=== PATIENT | male | born 1980 | race Caucasian/White ===

== ENCOUNTER 2024-10-11 20:32 | Emergency (ER) | payer OTHER, SELFPAY ==
[2024-10-11] VITALS (10 sets, daily range): BP systolic 163–197; BP diastolic 94–109; PULSE 70–84; RESP 16–18; TEMP 37.1; O2SAT 90–96; BMI 46.2
[2024-10-11 21:42] LABS: Basophils Absolute Auto 0.05 K/uL (0.00-0.30); Basophils Percent Auto 0.5 % (0.0-3.0); Eosinophils Absolute Auto 0.25 K/uL (0.00-0.50); Eosinophils Percent Auto 2.4 % (0.0-7.0); Hemoglobin* 13.9 gm/dL (13.5-17.5); Immature Granulocytes Abs Auto 0.02 K/uL (0.00-0.30); Immature Granulocytes Pct Auto 0.2 %; Lymphocytes Absolute Auto 2.66 K/uL (0.90-2.90); Lymphocytes Percent Auto 25.9 % (20-44); Mean Corpuscular HGB Conc 32 gm/dL (32-36); Mean Corpuscular Hemoglobin 28 pg (26-34); Mean Corpuscular Volume 87 fL (80-100); Monocytes Percent Auto 5.4 % (0.0-11.0); Neutrophils Absolute Auto 6.74 K/uL (1.7-7.0); Neutrophils Percent Auto 65.6 % (42.0-72.0); Platelet Count* 257 K/uL (140-440); RDW Coefficient of Variation % 13.9 % (11.5-15.5); Red Blood Count 4.96 m/uL (4.30-5.90); White Blood Count* 10.28 K/uL (4.50-11.00)
[2024-10-11 21:53] LABS: Slide Review Reflex No
[2024-10-11 21:57] LABS: Chloride* 107 mmol/L (96-114)
[2024-10-11 21:58] LABS: Potassium* 3.2 mmol/L (3.6-5.1); Sodium* 140 mmol/L (135-149)
[2024-10-11 22:00] LABS: Creatinine* 0.7 mg/dL (0.5-1.5); Est. Creatinine Clearance* 150.61; Estimated Glomerular Filt Rate 116 ml/min
[2024-10-11 22:01] LABS: Anion Gap 11 mEq/L (7-15); Blood Urea Nitrogen* 17 mg/dL (5-24); Calcium* 9.8 mg/dL (8.4-10.6); Carbon Dioxide* 22 mmol/L (20-32); Glucose* 134 mg/dL (60-115)
--- OUTSIDE RECORDS SUMMARY | 2024-10-11 22:04 | XMS_ITS | Referral Summary ---
Author Organization [facility] Address [address] [place] [id number] Care Team Providers Care Emergency Dispatch Operator Name Role Phone No Ref-Primary, Physician Primary Care Provider Allergies Active Allergy Reactions Criticality Noted Date Comments Naproxen Sodium Rash Low 01/26/2007 Bupropion Rash Low 01/26/2007 Medications ibuprofen (ADVIL,MOTRIN) 200 MG tablet Take 800 mg by mouth every 4 hours as needed. 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 01/31/2007 05/15/2007 Muscle weakness (generalized) 01/31/2007 05/15/2007 Immunizations Name Administration Dates Next Due TDAP Vaccine (Boostrix) 06/02/2017 Social History Tobacco Use Types Packs/Day Years Used Date Smoking Tobacco: Every Day Cigarettes Smokeless Tobacco: Former Tobacco Cessation:Ready to Q uit: No; Counseling Given: Yes Alcohol Use Standard Drinks/Week Comments Yes 0 (1 standard drink = 0.6 oz pur e alcohol) socially PHQ-2 Answer Date Recorded PHQ-2 Score 0 12/05/2018 Sex and Gender Information Value Date Recorded Sex Assigned at Not on file 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 Gender Identity Not on file Sexual Orientation Not on file Last Filed Vital Signs Vital Sign Reading Time Taken Comments Blood Pressure 124/84 04/26/2020 10:50 AM CDT Pulse 65 04/26/2020 10:50 AM CDT Temperature 36.6 ??C (97.9 ??F) 08/03/2019 1 0:10 AM CDT Respiratory Rate 20 04/26/2020 10:5 0 AM CDT Oxygen Saturation 98% 04/26/2020 10: 50 AM CDT Inhaled Oxygen Concentration - - Weight 140.1 kg (308 lb 14.4 oz) 2019 10:50 AM CDT Height 185.4 cm (6' 1) 02/20/2018 2:18 PM CDT Body Mass Index 40.75 02/20/2018 2:18 PM CDT Plan of Treatment Not on file Insurance [facility] Care Teams Emergency Dispatch Operator Relationship Specialty Start Date End Date No Ref-Primary, Physician PCP - General 02/20/18
--- OUTSIDE RECORDS SUMMARY | 2024-10-11 22:04 | XMS_ITS | Clinical Summary ---
Author Organization [facility] Address [address] [place] [id number] Care Team Providers Care Ornamental Rail Installer Name Role Phone No Ref-Primary, Physician Primary [...] Dates Next Due TDAP Vaccine (Boostrix) 06/02/2017 Family History Medical History Relation Comments Depression Father Other Cancer Father non-hodgkins lym phoma Depression Mother Behavior Disorder Son ADHD Relation Status Comments Brother Alive Daughter Alive Father Alive Maternal Grandfather Maternal Grandmother Mother Alive Paternal Grandfather Paternal Grandmother Alive Son Alive Social History Tobacco Use Types Packs/Day Years [...] on file 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
--- OUTSIDE RECORDS SUMMARY | 2024-10-11 22:04 | XMS_ITS | Clinical Summary ---
Author Organization [facility] Address [place], [place] [address] Care Team Providers Care Recreational Therapy Aide Name Role Phone Mercy Woodward MD Primary Care Provider + Allergies Active Allergy Reactions Criticality Noted Date Comments Bupropion Rash 11/09/2010 zyban Naproxen 11/09/2010 Medications Medication Sig Dispensed Refills Start Date End Date Status ibuprofen (ADVIL; MOTRIN) 200 mg tablet Take 1 tablet by mouth 4 times daily if needed. 0 11/09/2010 Active prochlorperazine (COMPAZINE) 10 mg tablet Take 1 tablet by mouth every 6 hours if needed for Nausea/Vomiting. 30 tablet 0 01/20/2012 Active omeprazole (PRILOSEC) 10 mg capsule Take 1 capsule by mouth once daily before a meal. 30 capsule 0 01/20/2012 Active codeine-guaFENesin (CHERATUSSIN AC) 10-100 mg/5 mL liquidIndications:Co ugh Take 5-10 mL by mouth every 4 hours if needed for Cough. Max dose 60 mL per 24 hrs. 150 mL 0 12/27/2013 Active albuterol HFA (PRO-AIR,VENTOLIN,NY OVENTIL) 90 mcg/actuation inhalerIndications:W heezing Inhale 1-2 Puffs by mouth every 4 hours if needed. 1 Inhaler 5 10/29/2014 Active Active Problems Problem Noted Date Diagnosed Date Sleep apnea 10/25/2013 Overview (10/25/2013): Severe. Started on CPAP Morbid obesity 10/02/2011 Smoking 09/30/2011 Immunizations Name Administration Dates Next Due Td (Age >=7 Years) 10/06/2004 Tdap 06/02/2017 Family History Medical History Relation Name Comments Good Health Brother bariatric surge ry Good Health Daughter Blood Disease Father non Hodgkin's small C cell Hypertension Mother Good Health Son Relation Name Status Comments Brother Alive Daughter Alive Father Alive Mother Alive Son Alive Social History Tobacco Use Types Packs/Day Years Used Date Smoking Tobacco: Every Day Cigarettes 1 15 Smokeless Tobacco: Never Tobacco Cessation:Ready to Q uit: No; Counseling Given: Yes Comments:wants to try lasar treatment Alcohol Use Standard Drinks/Week Comments Yes 0 (1 standard drink = 0.6 oz pur e alcohol) rarely Social Connections Answer Date Recorded Frequency of Communication with Friends and Fami ly Not on file 11/27/2021 Financial Resource Strain Answer Date R ecorded Difficulty of Paying Living Expenses Not on file 11/27/2021 Difficulty of Paying Living Expenses Not on file 11/27/2021 Sex and Gender Information Value Date Recorded Sex Assigned at Not on file Gender Identity Not on file Sexual Orientation Not on file Obstetrics History Last Filed Vital Signs Vital Sign Reading Time Taken Comments Blood Pressure 123/78 06/02/2017 9:50 AM CDT Pulse 64 06/02/2017 9:50 AM CDT Temperature 36.4 ??C (97.6 ??F) 06/02/2017 9:50 AM CD T Respiratory Rate 20 12/14/2013 1:36 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 Oxygen Saturation 99% 12/14/2013 1:36 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 Inhaled Oxygen Concentration - - Weight 156.5 kg (345 lb 1.6 oz) 06/02/2017 9:50 AM CDT Height 184.2 cm (6' 0.5) 06/02/2017 9:50 AM CDT Body Mass Index 46.16 06/02/2017 9:50 AM CDT Plan of Treatment Health Maintenance Due Date Last Done Comments HIV for age 15-65 1994 Hepatitis C screening for ag e 18-79 1997 BMI (ht and wt on same day) for age 18+ 06/02/2018 06/02/2017 Depression screening for age 12+ 06/02/2018 06/02/2017 Colonoscopy through age 75 01/31/2024 Lipids for age 45-75 01/31/2024 06/02/2017, 10/06/2004, 10/06/2004 COVID-19 vaccine series (2023-25 season) 2024 Influenza for age 9-49 07/28/2024 Tetanus booster 06/02/2027 06/02/2017, 10/06/2004 Tdap Completed 06/02/2017 Pneumococcal series for age 6-64 Aged Out No longer eligible b ased on patient's age to complete this topic Procedures Procedure Name Priority Date/Time Associated Diagnosis Comments LIPID PANEL W REFLEX MEASURED LDL Routine 06/02/2017 10:25 AM CDT Lipid screening from Last 3 Months or Most Recently Relevant to Health Maintenance Results * (ABNORMAL) LIPID PANEL W REFLEX MEASURED LDL (06/02/2017 10:25 AM CDT) CHOLESTEROL,TOTAL 209(H) 100 - 199 mg/dL 06/02/2017 2:56 PM CDT [facility] TRIGLYCERIDES 181(H) <150 mg/dL 06/02/2017 2:56 PM CDT [facility] HDL CHOLESTEROL 26(L) >40 mg/dL 7 2:56 PM CDT [facility] NON-HDL CHOLESTEROL 183(H) <145 mg/dl 06/02/2017 2:56 PM CDT [facility] CHOL/HDL RATIO 8.04(H) <4.50 06/02/2017 2:56 PM CDT [facility] LDL CHOLESTEROL 147(H) <=130 mg/dL 06/02/2017 2:56 PM CDT [facility] PATIENT STATUS FASTING 06/02/2017 2:56 PM CDT [facility] Blood BLOOD SPECIMEN / Unknown Venipuncture / Unknown 06/02/2017 10:25 AM CDT 06/02/2017 10:25 AM CDT Mercy Woodward MD [facility] [address] [place] [address], [place] from Last 3 Months or Most Recently Relevant to Health Maintenance Care Teams Recreational Therapy Aide Relationship Specialty Start Date End Date Mercy Woodward MD PCP - General 09/27/10
--- NOTE | 2024-10-11 22:36 | ED.GENADULT ---
HPI - General Adult General Date Seen: 10/11/24 Chief complaint: Hypertension Stated complaint: high blood pressure Time Seen by Provider: 10/11/24 20:44 Source: patient Mode of arrival: ambulatory Limitations: no limitations History of Present Illness HPI narrative: This very nice gentleman presents here with his with an elevated blood pressure. He is asymptomatic with this he did not have chest pain visual disturbances shortness of breath headaches or any other complaints, he took his blood pressure at home as he went to the manufacturing worker this week for ruptured blood vessel in his eye. The of times told this may be from high blood pressure, and his put a blood pressure cuff on his left wrist and noted that his blood pressure was 200 on 100. They came into the emergency department for this. He denies a history of elevated blood pressure but I do noted some of his visits he is consistently 160 systolic. No previous heart history, denies use of cold medications listed medications uses alcohol infrequently but does smoke, there is a history of family history of heart disease in the family, with multiple family members having bypasses before the age of 60. He does not have a history of chest pain shortness of breath, able to walk without problems. Related Data Home Medications ?Medication ?Instructions ?Recorded ?Confirmed ibuprofen 200 mg tablet (Advil) 1,600 mg PO DAILY 10/11/24 10/11/24 Previous Rx's ?Medication ?Instructions ?Recorded albuterol sulfate 90 mcg/actuation 2 puff inhalation Q4-6H PRN 08/21/23 aerosol inhaler (Ventolin HFA) shortness of breath or wheezing #8.5 grams Allergies Allergy/AdvReac Type Severity Reaction Status Date / Time naproxen Allergy Severe Rash Verified 10/11/24 20:41 bupropion (From Wellbutrin) Allergy Intermediate hives, Verified 10/11/24 20:41 shortness of breath Review of Systems Status of ROS: Reports: 10 or more systems reviewed and unremarkable except as noted in History and below [facility] Medical History Right otitis media ?H66.91 - Otitis media, unspecified, right ear (ICD-10) Community acquired pneumonia ?J18.9 - Pneumonia, unspecified organism (ICD-10) Wheezing ?R06.2 - Wheezing (ICD-10) Cough ?R05.9 - Cough, unspecified (ICD-10) Otitis externa ?H60.90 - Unspecified otitis externa, unspecified ear (ICD-10) Social History Smoking Status: Heavy tobacco smoker What tobacco products do you use: cigarettes Smoking packs per day: 1 Smoking cigarettes per day: 20.0 Years smoked: 30 Smoking pack-years: 30.00 Do you use any of these nicotine containing products: None Second hand tobacco smoke exposure: No How often do you have a drink containing alcohol: 2-4 times a month AUDIT-C Alcohol total score: 2 Non-prescribed substance use: denies use Exam Narrative: Exam Narrative: On examination large gentleman with an elevated BMI he is seen in room 4 he is speaking to me entirely normally, with no complaints pupils equal round reactive to light his fundi are normal. His neck is supple I am unable to sees JVP carotid upstrokes are normal bilaterally, with no bruits chest is good air entry bilateral with no wheezing crackles noted his heart sounds are normal there is no clicks murmurs or gallops his abdomen is soft and obese skin reveals no petechiae rashes moves all extremities independently well with no edema of his lower extremities. Const: Vital Signs, click to edit/add: Vital Signs - 24 hr 10/11/24 20:36 10/11/24 20:45 10/11/24 21:02 Temperature 98.7 F Pulse Rate 78 84 Pulse Rate [Pulse Oximeter] 80 Respiratory Rate 16 18 Blood Pressure 181/100 H Blood Pressure [Ri ght Upper Arm] 197/109 H Pulse Oximetry 95 96 96 Oxygen Delivery Me thod Room Air Room Air 10/11/24 21:15 10/11/24 21:23 10/11/24 21:41 Temperature Pulse Rate 78 75 74 Pulse Rate [Pulse Oximeter] Respiratory Rate 18 Blood Pressure 182/99 H 173/94 H Blood Pressure [Ri ght Upper Arm] Pulse Oximetry 94 94 90 Oxygen Delivery Me thod Room Air 10/11/24 22:00 10/11/24 22:01 10/11/24 22:15 Temperature Pulse Rate 70 71 70 Pulse Rate [Pulse Oximeter] Respiratory Rate Blood Pressure 172/98 H Blood Pressure [Ri ght Upper Arm] Pulse Oximetry 94 91 94 Oxygen Delivery Me thod 10/11/24 22:21 Temperature Pulse Rate 76 Pulse Rate [Pulse Oximeter] Respiratory Rate 18 Blood Pressure 163/103 H Blood Pressure [Ri ght Upper Arm] Pulse Oximetry 93 Oxygen Delivery Me thod Room Air Course Vital Signs Vital signs: Initial Vital Signs Temperature 98.7 F 10/11/24 20:36 Temperature Source Temporal Artery Scan 10/11/24 20:36 Pulse Rate 80 10/11/24 20:36 Respiratory Rate 16 10/11/24 20:36 Blood Pressure 197/109 H 10/11/24 20:36 Blood Pressure Mean 138 H 10/11/24 20:36 Blood Pressure Position Sitting 10/11/24 20:36 Pulse Oximetry 95 10/11/24 20:36 Oxygen Delivery Method Room Air 10/11/24 20:36 Vital Signs Temperature 98.7 F 10/11/24 20:36 Pulse Rate 80 10/11/24 20:36 Respiratory Rate 16 10/11/24 20:36 Blood Pressure 197/109 H 10/11/24 20:36 Pulse Oximetry 95 10/11/24 20:36 Oxygen Delivery Method Room Air 10/11/24 20:36 Temperature 98.7 F 10/11/24 20:36 Pulse Rate 76 10/11/24 22:21 Respiratory Rate 18 10/11/24 22:21 Blood Pressure 163/103 H 10/11/24 22:21 Pulse Oximetry 93 10/11/24 22:21 Oxygen Delivery Method Room Air 10/11/24 22:21 Medical Decision Making MDM Narrative Medical decision making narrative: This gentleman has asymptomatic hypertension and is at risk for developing either coronary disease or strokes for a complications 2nd is that. He would minimize this by losing weight, stopping smoking, and treating his high blood pressure. Given the fact he is asymptomatic today and falling the ACEP guidelines, I did offer medication for this but he declined I think follow-up would be fine waiting to the week, but he will need follow-up for this. Likely medication or multiple medications. There was also evidence of hypokalemia on his blood test, talked about potassium rich foods which she should do in this should be recheck Medical Records Medical records reviewed: Yes I reviewed the patient's medical records Lab Data Lab results reviewed: Yes I reviewed the patient's lab results Labs: Lab Results 11/15/24 Range/Units 21:30 WBC 10.28 (4.50-11.00) K/uL RBC 4.96 (4.30-5.90) m/uL Hgb 13.9 (13.5-17.5) gm/dL Hct 43.0 (37.0-53.0) % MCV 87 (80-100) fL MCH 28 (26-34) pg MCHC 32 (32-36) gm/dL RDW Coeff of Michele 13.9 (11.5-15.5) % Plt Count 257 (140-440) K/uL Neut % (Auto) 65.6 (42.0-72.0) % Lymph % (Auto) 25.9 (20-44) % Giles % (Auto) 5.4 (0.0-11.0) % Eos % (Auto) 2.4 (0.0-7.0) % Baso % (Auto) 0.5 (0.0-3.0) % Neut # (Auto) 6.74 (1.7-7.0) K/uL Lymph # (Auto) 2.66 (0.90-2.90) K/uL Giles # (Auto) 0.60 (0.00-0.90) K/UL Eos # (Auto) 0.25 (0.00-0.50) K/uL Baso # (Auto) 0.05 (0.00-0.30) K/uL Abs Immat Gran (auto) 0.02 (0.00-0.30) K/uL Imm/Tot Granulo (auto) 0.2 % Sodium 140 (135-149) mmol/L Potassium 3.2 L (3.6-5.1) mmol/L Chloride 107 (96-114) mmol/L Carbon Dioxide 22 (20-32) mmol/L Anion Gap 11 (7-15) mEq/L BUN 17 (5-24) mg/dL Creatinine 0.7 (0.5-1.5) mg/dL Estimated Creat Clear 150.61 Estimated GFR 116 ml/min Glucose 134 H (60-115) mg/dL Calcium 9.8 (8.4-10.6) mg/dL ECG Data Attestation: I personally reviewed and interpreted this ECG as follows: Prior ECG tracings: not available for review Interpretation: EKG shows normal sinus rhythm, with no acute ST wave changes normal QRS QT and QTC. Discharge Plan Discharge Clinical Impression: Asymptomatic hypertension, Tobacco use disorder Patient Disposition: Home w/ Parent or Adult Condition: Stable Instructions: How to Stop Smoking (ED), Hypokalemia (ED), Hypertension (ED) Additional Instructions: Home, rest, follow-up with primary care next week, would be appropriate, return if chest pain headaches, or other signs of significant hypertension. Recommend high potassium diet. And likely recheck of your laboratory work when you see primary care Smoking cessation, along with exercise and weight loss is also recommended. Activity Level: Light activity Prescriptions: No Action albuterol sulfate [Ventolin HFA] 90 mcg/actuation HFA aerosol inhaler 2 puff inhalation Q4-6H PRN (Reason: shortness of breath or wheezing) Qty: 8.5 1RF ibuprofen [Advil] 200 mg tablet 1,600 mg PO DAILY Follow Up/Referrals: Chang Leonard MD [Staff Physician] - Provider,Not a Local [Primary Care Provider] - Fly Day PA-C [Physician Roll Icer Machine] - Stand Alone Forms: [employer] Info Instructions
== END 2024-10-11 22:39 | disposition home or self-care (01) ==
PROVIDERS: Emergency Provider Family Medicine
DX: I10 Essential (primary) hypertension (principal); F17.200 Nicotine dependence, unspecified, uncomplicated
CPT/HCPCS: 36415; 80048; 85025; 93005; 99283; 99284

== ENCOUNTER 2024-10-14 10:54 | Outpatient (CLI) | payer OTHER, SELFPAY | END 2024-10-14 10:55 | disposition home or self-care (01) | PROVIDERS: PCP Physician Assistant Medical; Visit Provider Physician Assistant Medical | DX: I10 Essential (primary) hypertension (principal); E66.01 Morbid (severe) obesity due to excess calories; E87.6 Hypokalemia; R73.9 Hyperglycemia, unspecified | CPT/HCPCS: 80053; 80061; 84443 ==

== ENCOUNTER 2024-12-24 08:20 | Outpatient (CLI) | payer OTHER, SELFPAY | END 2024-12-24 08:21 | disposition home or self-care (01) | LOC: NFLDREF 12-30 01:45 | PROVIDERS: PCP Physician Assistant Medical; Referring Provider Physician Assistant Medical; Visit Provider Internal Medicine | DX: I10 Essential (primary) hypertension (principal); I44.30 Unspecified atrioventricular block; E78.2 Mixed hyperlipidemia | CPT/HCPCS: 80048; 80061; 82088; 84244 ==

== ENCOUNTER 2024-12-30 09:39 | Outpatient (CLI) | payer OTHER, SELFPAY ==
[2024-12-30] MEDS: PERFLUTREN LIPID MICROSPHERES 2 ML VIAL IVP (10:42)
== END 2024-12-30 09:40 | disposition home or self-care (01) ==
LOC: RAD 09:41
PROVIDERS: PCP Physician Assistant Medical; Visit Provider Internal Medicine
DX: I44.30 Unspecified atrioventricular block (principal)
CPT/HCPCS: 93306; Q9957

== ENCOUNTER 2025-05-06 09:05 | Outpatient (CLI) | payer OTHER, SELFPAY | END 2025-05-06 09:06 | disposition home or self-care (01) | LOC: NFLDREF 05-07 03:09 | PROVIDERS: PCP Physician Assistant Medical; Referring Provider Physician Assistant Medical; Visit Provider Internal Medicine | DX: E78.2 Mixed hyperlipidemia (principal) | CPT/HCPCS: 80061 ==

== ENCOUNTER 2025-07-07 10:09 | Outpatient (CLI) | payer OTHER, SELFPAY ==
--- NOTE | 2025-07-22 09:50 | W.PM.SLEEP ---
Sleep Study Details Details Interpreting Provider: Yogesh Date of Sleep Study: 07/07/25 Sleep Study Details: STUDY TYPE:? Home unattended ? BMI:? 47.5 ORDERING PROVIDER:Patric Day INDICATION:? Concerned about sleep apnea ? SLEEP SUMMARY:? 350 minutes monitored RESPIRATORY SUMMARY:? AHI 55.2 Low oxygen 74 28.7% of study oxygen less than 90% Snoring 100% PERIODIC LIMB MOVEMENTS OF SLEEP:? Not recorded CARDIAC:? Range 50-78, mean 60.3 beats per minute IMPRESSION:? Severe obstructive sleep apnea with significant hypo oxygenation. This may represent obesity hypoventilation syndrome. RECOMMENDATION: Weight loss is clearly recommended. For the sleep apnea treatment would consist of likely either AutoSet CPAP or bilevel.
== END 2025-07-07 10:10 | disposition home or self-care (01) ==
LOC: SLEEP 10:09
PROVIDERS: PCP Physician Assistant Medical; Visit Provider Physician Assistant Medical
DX: G47.33 Obstructive sleep apnea (adult) (pediatric) (principal)
CPT/HCPCS: 95806